=== PATIENT | female | born 1995 | race Caucasian/White ===

== ENCOUNTER 2019-12-29 21:22 | Emergency (ER) | payer OTHER ==
[~2019-12-29] VITALS: Ht 170.2 cm; Wt 120.2 kg
--- NOTE | 2019-12-29 21:46 | NUR ---
URINE PROVIDED. SENT TO LAB
--- NOTE | 2019-12-29 21:50 | NUR ---
PT AAOX4. AMBULATORY WITH STEADY GAIT. BIBSELF C/O ABD PAIN X5 DAYS +FEELING NAUSEOUS. PT CONTACTED [employer] WHICH WAS PRESCRIBED ZOFRAN ODT 4MG, DID NOT HELP. PT PLACED ON MONITOR AND PULSE OX. VSS. FRANDY BUCK FOR EVAL. NO ACUTE DISTRESS NOTED.
[2019-12-29 22:10] LABS: BASOPHILS # (AUTO) 0.1 /CMM (0.0-0.2); BASOPHILS % (AUTO) 0.6 % (0.0-2.0); EOSINOPHILS % (AUTO) 2.7 % (0.0-6.0); HEMATOCRIT 37 % (33-45); HEMOGLOBIN 11.7 g/dL (11.5-14.8); LYMPHOCYTES # (AUTO) 3.2 /CMM (0.8-4.8); LYMPHOCYTES % (AUTO) 25.6 % (20.0-44.0); MEAN CORPUSCULAR HGB CONC 32 g/dl (31.0-36.0); MEAN CORPUSCULAR VOLUME 83 fL (82-100); MONOCYTES # (AUTO) 0.7 /CMM (0.1-1.30); MONOCYTES % (AUTO) 5.6 % (2.0-12.0); NEUTROPHILS # (AUTO) 8.2 /CMM (1.8-8.9); NEUTROPHILS % (AUTO) 65.5 % (43.0-81.0); PLATELET COUNT (AUTO) 476 /CMM (150-450); RED BLOOD CELL COUNT(AUTO) 4.44 MIL/uL (4.0-5.2); WHITE BLOOD COUNT (AUTO) 12.5 K/uL (4.3-11.0)
[2019-12-29 22:17] LABS: APPEARANCE,URINE Clear (CLEAR); BILIRUBIN,URINE Negative (NEGATIVE); BLOOD, URINE Trace-intact Ery/uL (NEGATIVE); COLOR,URINE Yellow (YELLOW); KETONES,URINE Negative (NEGATIVE); LEUKOCYTE ESTERASE ,URINE Negative (NEGATIVE); NITRITE, URINE Negative (NEGATIVE); PROTEIN,URINE Negative (NEGATIVE); UGLUCOSE Negative (NEGATIVE); UROBILINOGEN,URINE 0.2 EU/dL (0.2)
[2019-12-29 22:29] LABS: ALBUMIN 3.4 g/dL (3.4-5.0); BILIRUBIN,TOTAL 0.2 mg/dL (0.2-1.0); CALCIUM, SERUM 8.9 mg/dL (8.5-10.1); CREATININE 0.8 mg/dL (0.6-1.3); POTASSIUM 4.6 mmol/L (3.5-5.1); TOTAL PROTEIN, SERUM 7.7 g/dL (6.4-8.2)
[2019-12-29 22:36] LABS: BACTERIA,URINE Few /HPF (None Seen); SQUAMOUS EPITHELIAL CELL,UR Few /HPF (None Seen); WBC,URINE 0-2 /HPF (0-3)
--- NOTE | 2019-12-29 22:47 | NUR ---
Patient discharged to home in stable condition. Written and verbal after care instructions given. Patient verbalizes understanding of instruction and RX. VSS. Pt ambulated with steady gait.
[2019-12-29 22:48] VITALS: BP 132/69
== END 2019-12-29 22:48 | disposition home or self-care (01) ==
LOC: ER 21:25
DX: K29.70 Gastritis, unspecified, without bleeding (principal); J45.909 Unspecified asthma, uncomplicated; F32.9 Major depressive disorder, single episode, unspecified; F41.9 Anxiety disorder, unspecified; Z98.890 Other specified postprocedural states; Z88.5 Allergy status to narcotic agent; Z88.6 Allergy status to analgesic agent
CPT/HCPCS: 36415; 80048-TC; 80076-TC; 81000-TC; 83690-TC; 84703-TC; 85025-TC